=== PATIENT | male | born 2000 | race Caucasian/White ===

== ENCOUNTER 2023-07-27 12:06 | Emergency (ER) | payer BC, OTHER ==
[2023-07-27] MEDS: Diphtheria,Pertussis(Acell),Tetanus Vaccine 0.5 ML Syringe IM ONE (13:21)
[2023-07-27] MEDS: Acetaminophen 500 MG Tab PO ONE (13:21)
[2023-07-27] MEDS: Bacitracin Oint 1 GM U/D Packet TOP ONE (13:21)
== END 2023-07-27 14:08 | disposition home or self-care (01) ==
LOC: JP.ED 12:06
DX: S01.01XA Laceration without foreign body of scalp, initial encounter (principal); F10.90 Alcohol use, unspecified, uncomplicated; H57.02 Anisocoria; W13.3XXA Fall through floor, initial encounter
CPT/HCPCS: 12001; 70450; 90471; 90715; 99283; A9270